=== PATIENT | female | born 1970 | race American Indian/Alaskan Native ===

== ENCOUNTER 2018-12-25 00:16 | Emergency (ER) | payer SELFPAY ==
[2018-12-25] MEDS ORDERED: ONDANSETRON 4 MG/2 ML INJ IV ONE (01:12)
[2018-12-25] MEDS ORDERED: SODIUM CHLORIDE 0.9% 1000 ML 1,000 ML IV ONE (01:12)
--- NOTE | 2018-12-25 01:21 | Emergency Department Report ---
HPI - General Chief Complaint: Nausea/Vomiting/Diarrhea Time Seen by Provider: 12/25/18 00:32 - HPI HPI: Room 19 The pt is a 48 y/o F p/w a cc of N/V. The pt states she's had nausea and vomiting. The pt denies Abd pain. Pt states she's been constipated x 4 days. Pt states she is passing flatus. Pt denies fever ED Past Medical Hx - Past Medical History Previous Medical History?: Yes Hx Hypertension: Yes Hx Diabetes: Yes Hx Arthritis: Yes (gout) Hx Psychiatric Treatment: Yes (bipolar, depression) Additional medical history: diverticulitis - Surgical History Past Surgical History?: No - Family History Family history: no significant - Social History Smoking Status: Former Smoker (none x 1 year) Substance Use Type: None - Medications Home Medications: Home Medications Medication Instructions Recorded Confirmed Last Taken Type Docusate Sodium [Colace] 100 mg PO BID PRN #30 capsule 12/25/18 Unknown Rx Gabapentin [Neurontin] 3 cap PO Q8HR 12/25/18 12/25/18 Unknown History Insulin Detemir [Levemir Flextouch] 34 unit SQ DAILY 12/25/18 12/25/18 Unknown History Lactulose [Cephulac] 20 gm PO Q6HR PRN #90 ml 12/25/18 Unknown Rx Lisinopril [Zestril TAB] 40 mg PO QDAY 12/25/18 12/25/18 Unknown History Metformin HCl [metFORMIN] 1,000 mg PO BID 12/25/18 12/25/18 Unknown History Metoclopramide [Reglan] 10 mg PO TID PRN #30 tab 12/25/18 Unknown Rx Nortriptyline [Pamelor] 3 cap PO HS 12/25/18 12/25/18 Unknown History SUMAtriptan SUCCINATE [Imitrex] 25 mg PO Q2HR PRN MDD 200 12/25/18 12/25/18 Unknown History Sitagliptin Phosphate [Januvia] 100 mg PO DAILY 12/25/18 12/25/18 Unknown History amLODIPine [Norvasc] 10 mg PO DAILY 12/25/18 12/25/18 Unknown History risperiDONE [RisperiDONE] 1 mg PO HS 12/25/18 12/25/18 Unknown History traZODone [Desyrel] 50 mg PO QHS 12/25/18 12/25/18 Unknown History ED Review of Systems ROS: Stated complaint: CONSTIPATION/NAUSEA Other details as noted in HPI Constitutional: denies: fever Eyes: denies: eye pain ENT: denies: throat pain Respiratory: no symptoms reported Cardiovascular: denies: chest pain Endocrine: no symptoms reported Gastrointestinal: nausea, vomiting, constipation. denies: abdominal pain Genitourinary: denies: dysuria Musculoskeletal: denies: back pain Neurological: denies: headache Physical Exam - Physical Exam Vital Signs: Vital Signs 12/25/18 00:30 Temperature 98.5 F Pulse Rate 108 H Respiratory 23 Rate Blood Pressure 184/133 Blood Pressure 184/133 [Left] O2 Sat by Pulse 100 Oximetry Physical Exam: GEN: WD WN F lying on stretcher with mild discomfort HEENT: EOMI NECK: Trachea midline LUNGS: No resp Distress CV: RRR no m/r/g ABD: S/ND. Pt has trace SP discomfort to palp o/w abd is benign SKIN: No Diaphoresis NEURO: GCS 15 MS: no evidence of acute injury ED Course Vital Signs 12/25/18 00:30 Temperature 98.5 F Pulse Rate 108 H Respiratory 23 Rate Blood Pressure 184/133 Blood Pressure 184/133 [Left] O2 Sat by Pulse 100 Oximetry - Reevaluation(s) Reevaluation #1: 12/25/18 04:38 pt had BM ED Medical Decision Making - Lab Data Result diagrams: 12/25/18 01:20 12/25/18 01:20 Laboratory Tests 12/25/18 12/25/18 12/25/18 00:44 01:20 01:20 WBC 10.7 RBC 5.12 H Hgb 15.4 H Hct 44.4 H MCV 87 MCH 30 MCHC 35 H RDW 13.1 L Plt Count 510 H Lymph % (Auto) 10.6 L [place] % (Auto) 4.3 Eos % (Auto) 0.2 Baso % (Auto) 0.4 Lymph # 1.1 L [place] # 0.5 Eos # 0.0 Baso # 0.0 Seg Neutrophils % 84.5 H Seg Neutrophils # 9.1 H Sodium 132 L Potassium 4.9 Chloride 93.8 L Carbon Dioxide 22 Anion Gap 21 BUN 12 Creatinine 0.7 Estimated GFR > 60 BUN/Creatinine Ratio 17 Glucose 293 H POC Glucose 270 H Calcium 9.6 Total Bilirubin 0.40 AST 19 ALT 17 Alkaline Phosphatase 129 Total Creatine Kinase CK-MB (CK-2) CK-MB (CK-2) Rel Index Troponin T Total Protein 9.3 H Albumin 4.5 Albumin/Globulin Ratio 0.9 Lipase 26 Urine Color Urine Turbidity Urine pH Ur Specific [place] Urine Protein Urine Glucose (UA) Urine Ketones Urine Blood Urine Nitrite Urine Bilirubin Urine Urobilinogen Ur Leukocyte Esterase Urine WBC (Auto) Urine RBC (Auto) U Epithel Cells (Auto) 12/25/18 12/25/18 01:20 01:44 WBC RBC Hgb Hct MCV MCH MCHC RDW Plt Count Lymph % (Auto) [place] % (Auto) Eos % (Auto) Baso % (Auto) Lymph # [place] # Eos # Baso # Seg Neutrophils % Seg Neutrophils # Sodium Potassium Chloride Carbon Dioxide Anion Gap BUN Creatinine Estimated GFR BUN/Creatinine Ratio Glucose POC Glucose Calcium Total Bilirubin AST ALT Alkaline Phosphatase Total Creatine Kinase 81 CK-MB (CK-2) 1.6 CK-MB (CK-2) Rel Index 1.9 Troponin T < 0.010 Total Protein Albumin Albumin/Globulin Ratio Lipase Urine Color Straw Urine Turbidity Clear Urine pH 8.0 H Ur Specific [place] 1.024 Urine Protein <15 mg/dl Urine Glucose (UA) >=500 Urine Ketones 80 Urine Blood Lg Urine Nitrite Neg Urine Bilirubin Neg Urine Urobilinogen < 2.0 Ur Leukocyte Esterase Neg Urine WBC (Auto) 6.0 Urine RBC (Auto) 19.0 U Epithel Cells (Auto) 4.0 - EKG Data -: EKG Interpreted by Sc EKG shows normal: sinus rhythm Rate: normal - EKG Data When compared to previous EKG there are: previous EKG unavailable Interpretation: other (no ischemic changes seen) - Radiology Data Radiology results: report reviewed (ct abd/pelvis), image reviewed (ct abd/pelvis) [facility] [address] [place] [address] Cat Scan Report Signed Patient: ABDIEL CUNHA MR#: [id number] : 1970 Acct:[id number] Age/Sex: 48 / F ADM Date: 12/25/18 Loc: ED Attending Dr: Ordering Physician: LUIS VEGAS MD Date of Service: 12/25/18 Procedure(s): CT abdomen pelvis w con Accession Number(s): [id number] cc: LUIS VEGAS MD CT ABDOMEN AND PELVIS WITH CONTRAST INDICATION / CLINICAL INFORMATION: n/v, unable to pass stool. TECHNIQUE: Axial CT images were obtained through the abdomen and pelvis after 100 mL Omnipaque [address] scans at this location are performed using CT dose reduction for ALARA by means of automated exposure control. COMPARISON: None available. FINDINGS: LOWER CHEST: No significant abnormality. LIVER: No significant abnormality. GALLBLADDER: No significant abnormality. BILE DUCTS: No significant abnormality. PANCREAS: No significant abnormality. SPLEEN: No significant abnormality. ADRENALS: No significant abnormality. RIGHT KIDNEY and URETER: No significant abnormality. LEFT KIDNEY and URETER: No significant abnormality. STOMACH and SMALL BOWEL: No significant abnormality. COLON: Moderate amount of fecal material throughout the colon and rectum. APPENDIX: No significant abnormality. PERITONEUM: No free fluid. No free air. No fluid collection. LYMPH NODES: No significant adenopathy. AORTA and A RTERIES: No significant abnormality. IVC and VEINS: No significant abnormality. URINARY BLADDER: No significant abnormality. REPRODUCTIVE ORGANS: No significant abnormality. ADDITIONAL FINDINGS: None. SKELETAL SYSTEM: No significant abnormality. IMPRESSION: 1. No inflammatory process or bowel obstruction. 2. Moderate amount of fecal material throughout the colon. Signer Name: Tiffany Arias MD Signed: 12/25/2018 3:07 AM Workstation Name: [id number] Transcribed By: DT Dictated By: Mj Arias MD Electronically Authenticated By: Mj Arias MD Signed Date/Time: 12/25/18306 DD/ 030 TD/TT: - Differential Diagnosis Constipation, SBO, ACS Critical care attestation.: If time is entered above; I have spent that time in minutes in the direct care of this critically ill patient, excluding procedure time. ED Disposition Clinical Impression: Constipation Disposition: DC-01 TO HOME OR SELFCARE Is pt being admited?: No Does the pt Need Aspirin: No Condition: Stable Instructions: Constipation (ED), High Fiber Diet (ED) Prescriptions: Lactulose [Cephulac] 20 gm PO Q6HR PRN #90 ml PRN Reason: Constipation Docusate Sodium [Colace] 100 mg PO BID PRN #30 capsule PRN Reason: Constipation Metoclopramide [Reglan] 10 mg PO TID PRN #30 tab PRN Reason: Nausea Referrals: LUCIANA SMYTH MD [Staff Physician] - 3-5 Days Time of Disposition: 04:41
[2018-12-25 01:35] LABS: Basophils % (Auto) 0.4 % (0.0-1.8); Eosinophils % (Auto) 0.2 % (0.0-4.3); Hematocrit 44.4 % (30.3-42.9); Hemoglobin 15.4 gm/dl (10.1-14.3); Lymphocytes # (Auto) 1.1 K/mm3 (1.2-5.4); Lymphocytes % (Auto) 10.6 % (13.4-35.0); Mean Corpuscular HGB Conc 35 % (30-34); Mean Corpuscular Volume 87 fl (79-97); Monocytes # (Auto) 0.5 K/mm3 (0.0-0.8); Monocytes % (Auto) 4.3 % (0.0-7.3); Platelet Count 510 K/mm3 (140-440); Red Blood Count 5.12 M/mm3 (3.65-5.03); Red Cell Distribution Width 13.1 % (13.2-15.2)
[2018-12-25 01:57] LABS: Bilirubin,Urine NEG (Negative); Blood,Urine LG (Negative); Color,Urine Straw (Yellow); Protein,Urine <15 mg/dL mg/dL (Negative); Urobilinogen,Urine < 2.0 mg/dL (<2.0)
[2018-12-25 02:02] LABS: Creatine Kinase MB 1.6 ng/mL (0.0-4.0)
[2018-12-25 02:04] LABS: Alanine Aminotransferase 17 units/L (7-56); Albumin 4.5 g/dL (3.9-5); BUN/Creatinine Ratio 17; Blood Urea Nitrogen 12 mg/dL (7-17); Calcium 9.6 mg/dL (8.4-10.2); Hemolysis Index 35
--- NOTE | 2018-12-25 03:11 | Cat Scan Report ---
CT ABDOMEN AND PELVIS WITH CONTRAST INDICATION / CLINICAL INFORMATION: n/v, unable to pass stool. TECHNIQUE: Axial CT images were obtained through the abdomen and pelvis after 100 mL Omnipaque [address] scans at this location are performed using CT dose reduction for ALARA by means of automated exposure control. COMPARISON: None available. FINDINGS: LOWER CHEST: No significant abnormality. LIVER: No significant abnormality. GALLBLADDER: No significant abnormality. BILE DUCTS: No significant abnormality. PANCREAS: No significant abnormality. SPLEEN: No significant abnormality. ADRENALS: No significant abnormality. RIGHT KIDNEY and URETER: No significant abnormality. LEFT KIDNEY and URETER: No significant abnormality. STOMACH and SMALL BOWEL: No significant abnormality. COLON: Moderate amount of fecal material throughout the colon and rectum. APPENDIX: No significant abnormality. PERITONEUM: No free fluid. No free air. No fluid collection. LYMPH NODES: No significant adenopathy. AORTA and ARTERIES: No significant abnormality. IVC and VEINS: No significant abnormality. URINARY BLADDER: No significant abnormality. REPRODUCTIVE ORGANS: No significant abnormality. ADDITIONAL FINDINGS: None. SKELETAL SYSTEM: No significant abnormality. IMPRESSION: 1. No inflammatory process or bowel obstruction. 2. Moderate amount of fecal material throughout the colon. Signer Name: Tiffany Arias MD Signed: 12/25/2018 3:07 AM Workstation Name: [id number]
[2018-12-25] MEDS ORDERED: LACTULOSE 20 GM/30 ML ORAL LIQD PO ONE (03:29)
[2018-12-25] MEDS ORDERED: METOCLOPRAMIDE 10 MG/2 ML INJ IV ONE (03:29)
[2018-12-25] MEDS ORDERED: cloNIDine 0.2 MG TAB PO ONE (03:30)
[2018-12-25] MEDS ORDERED: cloNIDine 0.2 MG TAB ONE (03:42)
[2018-12-25] MEDS ORDERED: PROMETHAZINE 25 MG TAB PO ONE (04:52)
[2018-12-25] MEDS ORDERED: ALUM-MAG HYDROXIDE-SIMETHICONE 200-200-20MG/5ML ORAL LIQD 30 ML PO ONE (04:53)
[2018-12-25 05:28] VITALS: BP 117/82
== END 2018-12-25 05:28 | disposition home or self-care (01) ==
LOC: ED 00:16
DX: K59.00 Constipation, unspecified (principal); R11.2 Nausea with vomiting, unspecified; I10 Essential (primary) hypertension; M10.9 Gout, unspecified; F31.9 Bipolar disorder, unspecified; F32.9 Major depressive disorder, single episode, unspecified; Z87.891 Personal history of nicotine dependence; Z79.899 Other long term (current) drug therapy
CPT/HCPCS: 36415; 74177; 80053; 81001; 82550; 82553; 82962; 83690; 84484; 85025; 93005; 93010; 96361; 96374; 96375; 99285; J2405; J2765; J7030; Q0169; Q9967

== ENCOUNTER 2018-12-26 16:08 | Inpatient (IN) | payer SELFPAY ==
[2018-12-26] MEDS ORDERED: ONDANSETRON 4 MG/2 ML INJ IV ONE ×2 (16:19→19:17)
[2018-12-26] MEDS ORDERED: SODIUM CHLORIDE 0.9% 1000 ML 1,000 ML IV ONE ×4 (16:19→22:25)
--- NOTE | 2018-12-26 16:22 | Event Note ---
ED Screening Note Date of service: 12/26/18 Time: 16:17 ED Screening Note: 48 y o male PMH of DM and HTN presents with dizziness, and thrst witth nausea vomitting diaphoretic, distress This initial assessment/diagnostic orders/clinical plan/treatment(s) is/are subject to change based on patients health status, clinical progression and re- assessment by fellow clinical providers in the ED. Further treatment and workup at subsequent clinical providers discretion. Patient/guardian urged not to elope from the ED as their condition may be serious if not clinically assessed and managed. Initial orders include: labs, meds ivf, insulin, clonidine ekg main side eval
--- NOTE | 2018-12-26 16:38 | Emergency Department Report ---
ED General Adult HPI - General Chief complaint: Hyperglycemia Stated complaint: HIGH BLOOD SUGAR Time Seen by Provider: 12/26/18 16:29 Source: EMS Mode of arrival: Wheelchair Limitations: No Limitations - History of Present Illness Initial comments: CRYSTAL is a 48-year-old female that presents emergency room with complaints of weakness, lightheadedness, nausea vomiting, elevated blood sugar. While the patient was in triage she had a syncopal episode. Patient was brought immediately to room 17. Patient denies chest pain shortness of breath. Patient states her syncope and loss of consciousness was for seconds. Patient is currently answering questions appropriately. Patient states she's had increased urination and increased thirst. Patient states her blood glucose is out of control. Patient denies chest pain shortness of breath. Patient denies fever and chills. Patient denies blurry vision. -: Sudden Consistency: constant Improves with: medication, rest Worsens with: movement Associated Symptoms: diaphoresis, malaise, nausea/vomiting, syncope, weakness. denies: confusion, chest pain, cough, fever/chills, headaches, loss of appetite, rash, seizure, shortness of breath Treatments Prior to Arrival: none - Related Data Home Medications Medication Instructions Recorded Confirmed Last Taken Gabapentin [Neurontin] 3 cap PO Q8HR 12/25/18 12/26/18 Unknown Insulin Detemir [Levemir Flextouch] 34 unit SQ DAILY 12/25/18 12/26/18 Unknown Lisinopril [Zestril TAB] 40 mg PO DAILY 12/25/18 12/26/18 Unknown Metformin HCl [metFORMIN] 1,000 mg PO BID 12/25/18 12/26/18 Unknown Nortriptyline [Pamelor] 3 cap PO HS 12/25/18 12/26/18 Unknown SUMAtriptan SUCCINATE [Imitrex] 25 mg PO Q2HR PRN MDD 200 12/25/18 12/26/18 Unknown Sitagliptin Phosphate [Januvia] 100 mg PO DAILY 12/25/18 12/26/18 Unknown amLODIPine [Norvasc] 10 mg PO DAILY 12/25/18 12/26/18 Unknown risperiDONE [RisperiDONE] 1 mg PO HS 12/25/18 12/26/18 Unknown traZODone [Desyrel] 50 mg PO QHS 12/25/18 12/26/18 Unknown Lispro Insulin [HumaLOG] 18 unit SQ BID 12/26/18 12/26/18 Unknown Previous Rx's Medication Instructions Recorded Last Taken Type Docusate Sodium [Colace] 100 mg PO BID PRN #30 capsule 12/25/18 Unknown Rx Lactulose [Cephulac] 20 gm PO Q6HR PRN #90 ml 12/25/18 Unknown Rx Metoclopramide [Reglan] 10 mg PO TID PRN #30 tab 12/25/18 Unknown Rx Allergies Allergy/AdvReac Type Severity Reaction Status Date / Time No Known Allergies Allergy Verified 12/25/18 04:03 ED Review of Systems ROS: Stated complaint: HIGH BLOOD SUGAR Other details as noted in HPI Constitutional: diaphoresis. denies: chills, fever Eyes: denies: eye pain, eye discharge, vision change ENT: denies: ear pain, throat pain Respiratory: denies: cough, shortness of breath, wheezing Cardiovascular: denies: chest pain, palpitations Endocrine: no symptoms reported, increased hunger, increased thirst, increased urine Gastrointestinal: nausea, vomiting. denies: abdominal pain, diarrhea Genitourinary: denies: urgency, dysuria, discharge Musculoskeletal: denies: back pain, joint swelling, arthralgia Skin: denies: rash, lesions Neurological: weakness. denies: headache, paresthesias Psychiatric: denies: anxiety, depression Hematological/Lymphatic: denies: easy bleeding, easy bruising ED Past Medical Hx - Past Medical History Previous Medical History?: Yes Hx Hypertension: Yes Hx Diabetes: Yes Hx Arthritis: Yes (gout) Hx Psychiatric Treatment: Yes (bipolar, depression) Additional medical history: diverticulitis - Surgical History Past Surgical History?: No - Family History Family history: no significant - Social History Smoking Status: Never Smoker Substance Use Type: None - Medications Home Medications: Home Medications Medication Instructions Recorded Confirmed Last Taken Type Docusate Sodium [Colace] 100 mg PO BID PRN #30 capsule 12/25/18 12/26/18 Unknown Rx Gabapentin [Neurontin] 3 cap PO Q8HR 12/25/18 12/26/18 Unknown History Insulin Detemir [Levemir Flextouch] 34 unit SQ DAILY 12/25/18 12/26/18 Unknown History Lactulose [Cephulac] 20 gm PO Q6HR PRN #90 ml 12/25/18 12/26/18 Unknown Rx Lisinopril [Zestril TAB] 40 mg PO DAILY 12/25/18 12/26/18 Unknown History Metformin HCl [metFORMIN] 1,000 mg PO BID 12/25/18 12/26/18 Unknown History Metoclopramide [Reglan] 10 mg PO TID PRN #30 tab 12/25/18 12/26/18 Unknown Rx Nortriptyline [Pamelor] 3 cap PO HS 12/25/18 12/26/18 Unknown History SUMAtriptan SUCCINATE [Imitrex] 25 mg PO Q2HR PRN MDD 200 12/25/18 12/26/18 Unknown History Sitagliptin Phosphate [Januvia] 100 mg PO DAILY 12/25/18 12/26/18 Unknown History amLODIPine [Norvasc] 10 mg PO DAILY 12/25/18 12/26/18 Unknown History risperiDONE [RisperiDONE] 1 mg PO HS 12/25/18 12/26/18 Unknown History traZODone [Desyrel] 50 mg PO QHS 12/25/18 12/26/18 Unknown History Lispro Insulin [HumaLOG] 18 unit SQ BID 12/26/18 12/26/18 Unknown History ED Physical Exam - General Limitations: No Limitations General appearance: alert, in no apparent distress - Head Head exam: Present: atraumatic, normocephalic - Eye Eye exam: Present: normal appearance, PERRL Pupils: Present: normal accommodation - ENT ENT exam: Present: mucous membranes moist - Neck Neck exam: Present: normal inspection - Respiratory Respiratory exam: Present: normal lung sounds bilaterally. Absent: respiratory distress, wheezes, rales - Cardiovascular Cardiovascular Exam: Present: regular rate, normal rhythm. Absent: systolic murmur, diastolic murmur, rubs, gallop - GI/Abdominal GI/Abdominal exam: Present: soft, normal bowel sounds - Extremities Exam Extremities exam: Present: normal inspection - Back Exam Back exam: Present: normal inspection - Neurological Exam Neurological exam: Present: alert, oriented X3 - Skin Skin exam: Present: warm, intact, normal color, diaphoretic. Absent: rash ED Course Vital Signs 12/26/18 12/26/18 12/26/18 16:17 16:31 16:46 Temperature 98.1 F Pulse Rate 110 H 111 H Respiratory 18 31 H 20 Rate Blood Pressure 220/130 195/129 O2 Sat by Pulse 100 94 Oximetry 12/26/18 12/26/18 12/26/18 17:00 17:30 17:45 Temperature Pulse Rate 108 H 103 H 113 H Respiratory 21 12 16 Rate Blood Pressure 204/127 195/123 183/108 O2 Sat by Pulse 100 87 Oximetry 12/26/18 12/26/18 12/26/18 17:53 17:59 18:00 Temperature 97.8 F Pulse Rate 118 H Respiratory 18 21 Rate Blood Pressure 193/117 O2 Sat by Pulse 97 92 Oximetry 12/26/18 12/26/18 12/26/18 18:15 18:45 19:00 Temperature Pulse Rate 119 H 122 H 118 H Respiratory 22 14 19 Rate Blood Pressure 177/123 188/117 199/127 O2 Sat by Pulse 99 98 96 Oximetry 12/26/18 12/26/18 12/26/18 19:30 20:00 20:30 Temperature Pulse Rate 118 H 126 H Respiratory 20 20 12 Rate Blood Pressure 193/120 167/118 O2 Sat by Pulse 98 Oximetry 12/26/18 12/26/18 12/26/18 21:00 21:30 22:00 Temperature Pulse Rate Respiratory 13 18 10 L Rate Blood Pressure 160/88 152/89 161/89 O2 Sat by Pulse 98 97 Oximetry 12/26/18 22:30 Temperature Pulse Rate 129 H Respiratory 25 H Rate Blood Pressure 139/97 O2 Sat by Pulse Oximetry - Reevaluation(s) Reevaluation #1: Initial evaluation done. Patient answering questions. Patient is lethargic but easily arousable. 12/26/18 16:29 Reevaluation #2: Patient ambulatory in the ER to use the bathroom. 12/26/18 17:53 Reevaluation #3: His blood pressure still high. Patient's blood pressure does not come down at all with hydralazine. Patient placed on a nicardipine drip. Patient denies pain. Patient is more alert and is answering all questions appropriate. 12/26/18 19:18 Reevaluation #4: pt on nicardipine drip. Patient is complaining of nausea. Patient's head CT negative. I discussed all results with patient. I discussed plan of care with patient. Patient will be admitted to the hospitalist service. Patient agrees plan of care. 12/26/18 20:27 The patient's anion gap is not closing and the patient's bicarbonate is worsened. Patient placed on insulin drip. 12/26/18 22:38 - Consultations Consultation #1: Hospitalist consult for admission. Hospitalist to admit patient. 12/26/18 20:28 ED Medical Decision Making - Lab Data Result diagrams: 12/26/18 16:32 12/26/18 21:43 - EKG Data -: EKG Interpreted by Me EKG shows normal: sinus rhythm, axis, intervals, QRS complexes, ST-T waves Rate: tachycardia - Radiology Data Radiology results: report reviewed, image reviewed interpreted by me: No acute findings on chest x-ray. CT HEAD WITHOUT CONTRAST INDICATION / CLINICAL INFORMATION: syncope. TECHNIQUE: All CT scans at this location are performed using CT dose reduction for ALARA by means of automated exposure control. COMPARISON: None available. FINDINGS: HEMORRHAGE: No evidence of intracranial hemorrhage or extra-axial fluid collecti on. EXTRA-AXIAL SPACES: Cortical sulci, sylvian fissures and basilar cisterns have an unremarkable appearance. VENTRICULAR SYSTEM: The ventricular system is of normal size and configuration. CEREBRAL PARENCHYMA: No areas of abnormal brain parenchymal attenuation are identified. There is no indication of recent infarction. MIDLINE SHIFT OR HERNIATION: There is no mass effect. CEREBELLUM / BRAINSTEM: Brainstem and cerebellum have an unremarkable appearance. INTRACRANIAL VESSELS:No abnormalities are identified on this noncontrast head CT. ORBITS: visualized portions of the orbits have an unremarkable appearance. SOFT TISSUES of HEAD: No significant abnormality. CALVARIUM: Evaluation of bone windows reveals no abnormalities. PARANASAL SINUSES / MASTOID AIR CELLS: Paranasal sinuses are free from inflammatory mucosal disease. Mastoid air cells are normally pneumatized. IMPRESSION: 1. No abnormalities are identified on head CT without contrast. - Medical Decision Making Patient is a 48-year-old female that presents emergency room with complaints of nausea and vomiting for multiple days, elevated blood sugar and polyuria. Patient has known history of diabetes. Patient found to be in DKA. Patient's pH was alkalotic and I believe that the pH alkalosis because of multiple bouts of nausea and vomiting on top of diabetic ketoacidosis.. Patient given Zofran and fluids. Patient placed on a insulin drip. Patient had a DKA protocol. Patient had a syncopal episode in triage. Patient was immediately brought back from triage. pt had ct for her syncopal episode and was negative. cxr negative. Patient also found to be malignant hypertension and hypertensive emergency and was given IV meds of her blood pressure did not improve, and patient was then placed on a nicardipine drip. Patient also found to have hypokalemia and was given potassium runs. After 2 bags potassium her potassium was canceled due to needing to be placed on D5 half-normal saline with 20 of K. - Differential Diagnosis DKA. Intractable nausea and vomiting. syncope. hyperglycemia Critical Care Time: Yes Critical care attestation.: If time is entered above; I have spent that time in minutes in the direct care of this critically ill patient, excluding procedure time. Critical Care Time: 55 minutes ED Disposition Clinical Impression: Polyuria, Weakness, Lightheadedness, Hypertensive emergency, Hyponatremia, Lactic acid acidosis, Hypokalemia DKA (diabetic ketoacidoses) Qualifiers: Diabetes mellitus type: type 1 Diabetes mellitus complication detail: with coma Qualified Code(s): E10.11 - Type 1 diabetes mellitus with ketoacidosis with coma Nausea & vomiting Qualifiers: Vomiting type: unspecified Vomiting Intractability: intractable Qualified Code(s): R11.2 - Nausea with vomiting, unspecified Syncope Qualifiers: Syncope type: unspecified Qualified Code(s): R55 - Syncope and collapse Disposition: OP ADMIT IP TO THIS HOSP Is pt being admited?: Yes Does the pt Need Aspirin: No Condition: Critical Time of Disposition: 18:00
[2018-12-26 16:48] LABS: Basophils # (Auto) 0.1 K/mm3 (0.0-0.1); Basophils % (Auto) 0.6 % (0.0-1.8); Eosinophils # (Auto) 0.1 K/mm3 (0.0-0.4); Eosinophils % (Auto) 0.8 % (0.0-4.3); Hematocrit 42.8 % (30.3-42.9); Hemoglobin 14.5 gm/dl (10.1-14.3); Lymphocytes # (Auto) 1.1 K/mm3 (1.2-5.4); Lymphocytes % (Auto) 12.8 % (13.4-35.0); Mean Corpuscular HGB Conc 34 % (30-34); Mean Corpuscular Volume 87 fl (79-97); Monocytes # (Auto) 0.5 K/mm3 (0.0-0.8); Monocytes % (Auto) 6.1 % (0.0-7.3); Platelet Count 567 K/mm3 (140-440); Red Blood Count 4.91 M/mm3 (3.65-5.03); Red Cell Distribution Width 13.3 % (13.2-15.2)
[2018-12-26] MEDS ORDERED: hydrALAZINE 20 MG/1 ML INJ IV ONE (16:54)
[2018-12-26 16:58] LABS: INR 0.98 (0.87-1.13)
[2018-12-26 17:02] LABS: Alanine Aminotransferase 16 units/L (7-56); Albumin 4.3 g/dL (3.9-5); BUN/Creatinine Ratio 26; Blood Urea Nitrogen 23 mg/dL (7-17); Calcium 9.5 mg/dL (8.4-10.2); Hemolysis Index 28
--- NOTE | 2018-12-26 17:18 | XRay Report ---
CHEST 1 VIEW INDICATION / CLINICAL INFORMATION: Lightheadedness/Dizziness. COMPARISON: None available. FINDINGS: SUPPORT DEVICES: None. HEART / MEDIASTINUM: No significant abnormality. LUNGS / PLEURA: No significant pulmonary or pleural abnormality. No pneumothorax. ADDITIONAL FINDINGS: No significant additional findings. IMPRESSION: 1. No acute findings. Signer Name: Robbi Salazar MD Signed: 12/26/2018 5:13 PM Workstation Name: [id number]
[2018-12-26] MEDS ORDERED: DEXTROSE 50% IN WATER (25GM) 50 ML SYRINGE IV PRN (17:48)
[2018-12-26 17:50] LABS: Bilirubin,Urine NEG (Negative); Blood,Urine NEG (Negative); Color,Urine Straw (Yellow); Mucus,Urine FEW /HPF; Protein,Urine <15 mg/dL mg/dL (Negative); Urobilinogen,Urine < 2.0 mg/dL (<2.0)
[2018-12-26] MEDS ORDERED: INSULIN REGULAR, HUMAN 100 UNITS/1 ML IV ONE (17:59)
[2018-12-26] MEDS ORDERED: D5W/0.45% NACL/KCL 20 MEQ 20 MEQ/1,000 ML BAG IV SCH ×2 (18:00→23:00)
[2018-12-26] MEDS ORDERED: INSULIN REGULAR, HUMAN 100 UNITS in SODIUM CHLORIDE 0.9% 99 ML IV SCH ×2 (18:00→23:00)
[2018-12-26] MEDS ORDERED: PROMETHAZINE 25 MG RECT SUPP PR ONE ×2 (18:17→21:21)
[2018-12-26 18:36] LABS: BUN/Creatinine Ratio 23; Blood Urea Nitrogen 21 mg/dL (7-17); Calcium 8.7 mg/dL (8.4-10.2); Hemolysis Index 8
[2018-12-26 18:50] LABS: Amphetamine Screen,Urine PRESUMPTIVE NEGATIVE; Benzodiazepines Screen,Urine PRESUMPTIVE NEGATIVE; Cannabinoid Screen,Urine PRESUMPTIVE NEGATIVE; Cocaine Screen,Urine PRESUMPTIVE NEGATIVE; Methadone Screen,Urine PRESUMPTIVE NEGATIVE; Opiate Screen,Urine PRESUMPTIVE NEGATIVE
[2018-12-26 19:43] LABS: BUN/Creatinine Ratio 23; Blood Urea Nitrogen 18 mg/dL (7-17); Calcium 8.4 mg/dL (8.4-10.2); Hemolysis Index 61
[2018-12-26] MEDS ORDERED: niCARdipine 50 MG in SODIUM CHLORIDE 0.9% 250ML 230 ML IV SCH (20:00)
--- NOTE | 2018-12-26 20:17 | Cat Scan Report ---
CT HEAD WITHOUT CONTRAST INDICATION / CLINICAL INFORMATION: syncope. TECHNIQUE: All CT scans at this location are performed using CT dose reduction for ALARA by means of automated e xposure control. COMPARISON: None available. FINDINGS: HEMORRHAGE: No evidence of intracranial hemorrhage or extra-axial fluid collection. EXTRA-AXIAL SPACES: Cortical sulci, sylvian fissures and basilar cisterns have an unremarkable appear ance. VENTRICULAR SYSTEM: The ventricular system is of normal size and configuration. CEREBRAL PARENCHYMA: No areas of abnormal brain parenchymal attenuation are identified. There is no i ndication of recent infarction. MIDLINE SHIFT OR HERNIATION: There is no mass effect. CEREBELLUM / BRAINSTEM: Brainstem and cerebellum have an unremarkable appearance. INTRACRANIAL VESSELS:No abnormalities are identified on this noncontrast head CT. ORBITS: visualized portions of the orbits have an unremarkable appearance. SOFT TISSUES of HEAD: No significant abnormality. CALVARIUM: Evaluation of bone windows reveals no abnormalities. PARANASAL SINUSES / MASTOID AIR CELLS: Paranasal sinuses are free from inflammatory mucosal disease. Mastoid air cells are normally pneumatized. IMPRESSION: 1. No abnormalities are identified on head CT without contrast. Signer Name: Abdi Gibbons MD Signed: 12/26/2018 8:12 PM Workstation Name: [id number]
[2018-12-26] MEDS ORDERED: SODIUM CHLORIDE 0.9% 500 ML 500 ML ONE (21:05)
[2018-12-26] MEDS: POTASSIUM CHLORIDE 10 MEQ 10 MEQ/100 ML BAG IV SCH ×2 (21:19→22:40)
[2018-12-26] MEDS ORDERED: LORazepam 2 MG/ML VIAL IV ONE (21:38)
[2018-12-26 22:18] LABS: BUN/Creatinine Ratio 21; Blood Urea Nitrogen 17 mg/dL (7-17); Calcium 8.5 mg/dL (8.4-10.2); Hemolysis Index 9
--- NOTE | 2018-12-27 | History and Physical Report ---
History of Present Illness Date of examination: 12/26/18 History of present illness: 48-year-old woman with a history of hypertension, diabetes, gout, bipolar, depression comes emergency room complaining of nausea vomiting since Monday, feeling dizzy. She was seen in the emergency room yesterday for abdominal pain, CT abdomen was negative she was discharged to home she describes her pain as sharp, intermittent every few minutes, intensity 6/10, no radiation, cannot identify exacerbating or relieving factors. Blood pressure control, started on a Cardene drip eview Of Systems: Constitutional: no weight loss, fever, chills Ears, eyes, nose, mouth and throat: no nasal congestion, no nasal discharge, no sinus pressure, blurry vision, diplopia Neck: No neck pain or rigidity. Cardiovascular: No palpitations, chest pain Respiratory: No shortness of breath, cough Gastrointestinal: No hematochezia Genitourinary : no dysuria, frequency , hematuria Musculoskeletal: no muscle ache , joint pain Integumentary: no rash, no pruritis Neurological: no parathesias, focal weakness Endocrine: no cold or heat intolerance, no polyuria or polydipsia Hematologic/Lymphatic: no easy bruising, no easy bleeding, no gland swelling Allergic/Immunologic: no urticaria, no angioedema. PAST MEDICAL HISTORY: hypertension, diabetes, gout, bipolar, depression PAST SURGICAL HISTORY: None FAMILY HISTORY:hypertension, diabetes SOCIAL HISTORY: Denies tobacco, drugs, alcohol Medications and Allergies Allergies Allergy/AdvReac Type Severity Reaction Status Date / Time No Known Allergies Allergy Verified 12/25/18 04:03 Home Medications Medication Instructions Recorded Confirmed Last Taken Type Docusate Sodium [Colace] 100 mg PO BID PRN #30 capsule 12/25/18 12/26/18 Unknown Rx Gabapentin [Neurontin] 3 cap PO Q8HR 12/25/18 12/26/18 Unknown History Insulin Detemir [Levemir Flextouch] 34 unit SQ DAILY 12/25/18 12/26/18 Unknown History Lactulose [Cephulac] 20 gm PO Q6HR PRN #90 ml 12/25/18 12/26/18 Unknown Rx Lisinopril [Zestril TAB] 40 mg PO DAILY 12/25/18 12/26/18 Unknown History Metformin HCl [metFORMIN] 1,000 mg PO BID 12/25/18 12/26/18 Unknown History Metoclopramide [Reglan] 10 mg PO TID PRN #30 tab 12/25/18 12/26/18 Unknown Rx Nortriptyline [Pamelor] 3 cap PO HS 12/25/18 12/26/18 Unknown History SUMAtriptan SUCCINATE [Imitrex] 25 mg PO Q2HR PRN MDD 200 12/25/18 12/26/18 Unknown History Sitagliptin Phosphate [Januvia] 100 mg PO DAILY 12/25/18 12/26/18 Unknown Hist ory amLODIPine [Norvasc] 10 mg PO DAILY 12/25/18 12/26/18 Unknown History risperiDONE [RisperiDONE] 1 mg PO HS 12/25/18 12/26/18 Unknown History traZODone [Desyrel] 50 mg PO QHS 12/25/18 12/26/18 Unknown History Lispro Insulin [HumaLOG] 18 unit SQ BID 12/26/18 12/26/18 Unknown History Active Meds: Active Medications Dextrose (D50w (25gm) Syringe) 0 ml IV PRN PRN PRN Reason: Hypoglycemia Nicardipine HCl 50 mg/ Sodium (Chloride) 250 mls @ 25 mls/hr IV TITR JOSE C; Protocol Last Titration: 12/26/18 20:50 Dose: 7.5 mg/hr, 37.5 mls/hr Documented by: Insulin Human Regular 100 (units/ Sodium Chloride) 100 mls @ 1 mls/hr IV TITR JOSE C; Protocol Last Admin: 12/26/18 23:30 Dose: 5 units/hr, 5 mls/hr Documented by: Potassium Chloride/Dextrose/Sod Cl (D5w/0.45% Nacl/Kcl 20 Meq) 20 meq in 1,000 mls @ 125 mls/hr IV DIRECT JOSE C Last Admin: 12/26/18 23:34 Dose: 125 mls/hr Documented by: Exam - Physical Exam Narrative exam: General Apperance: The patient sitting in bed no acute distress HEENT: Normocephalic, atraumatic. Pupils equally round and reactive to light, extraocular movement intact, and no sclericterus or JVD or thyromegaly or nodule. Neck supple, no carotid bruit, mucous membranes moist, no exudate or erythema Heart: S1-S2, regular is rhythm Lungs: Clear to auscultation bilaterally, breathing comfortable Abdomen: Positive bowel sounds, soft, tender in the lower abdomen, nondistended, no organomegaly Extremities: No edema cyanosis clubbing Skin: no rash, nodule, warm and dry Neuro:CN 2 -12 intact, motor/sensory intact, speech is fluent - Constitutional Vitals: Temp Pulse Resp BP Pulse Ox 97.8 F 129 H 25 H 139/97 97 12/26/18 17:53 12/26/18 22:30 12/26/18 22:30 12/26/18 22:30 12/26/18 21:30 Results - Labs CBC & Chem 7: 12/26/18 16:32 12/27/18 02:42 Labs: Abnormal lab results 12/26/18 12/26/18 12/26/18 Range/Units 16:28 16:32 16:32 Hgb 14.5 H (10.1-14.3) gm/dl Plt Count 567 H (140-440) K/mm3 Lymph % (Auto) 12.8 L (13.4-35.0) % Lymph # 1.1 L (1.2-5.4) K/mm3 Seg Neutrophils % 79.7 H (40.0-70.0) % VBG pH (7.320-7.420) Sodium 130 L (137-145) mmol/L Potassium (3.6-5.0) mmol/L Chloride 89.5 L (98-107) mmol/L Carbon Dioxide 20 L (22-30) mmol/L BUN 23 H (7-17) mg/dL Glucose 346 H (65-100) mg/dL POC Glucose 339 H (70-105) Lactic Acid (0.7-2.0) mmol/L Phosphorus (2.5-4.5) mg/dL Total Protein 8.9 H (6.3-8.2) g/dL Urine pH (5.0-7.0) 12/26/18 12/26/18 12/26/18 Range/Units 16:32 16:32 17:18 Hgb (10.1-14.3) gm/dl Plt Count (140-440) K/mm3 Lymph % (Auto) (13.4-35.0) % Lymph # (1.2-5.4) K/mm3 Seg Neutrophils % (40.0-70.0) % VBG pH 7.498 H (7.320-7.420) Sodium (137-145) mmol/L Potassium (3.6-5.0) mmol/L Chloride (98-107) mmol/L Carbon Dioxide (22-30) mmol/L BUN (7-17) mg/dL Glucose (65-100) mg/dL POC Glucose (70-105) Lactic Acid 2.50 H* 2.10 H* (0.7-2.0) mmol/L Phosphorus (2.5-4.5) mg/dL Total Protein (6.3-8.2) g/dL Urine pH (5.0-7.0) 12/26/18 12/26/18 12/26/18 Range/Units 17:54 17:54 18:52 Hgb (10.1-14.3) gm/dl Plt Count (140-440) K/mm3 Lymph % (Auto) (13.4-35.0) % Lymph # (1.2-5.4) K/mm3 Seg Neutrophils % (40.0-70.0) % VBG pH (7.320-7.420) Sodium 135 L (137-145) mmol/L Potassium (3.6-5.0) mmol/L Chloride 96.3 L (98-107) mmol/L Carbon Dioxide 21 L (22-30) mmol/L BUN 21 H (7-17) mg/dL Glucose 297 H (65-100) mg/dL POC Glucose 255 H (70-105) Lactic Acid (0.7-2.0) mmol/L Phosphorus 1.20 L (2.5-4.5) mg/dL Total Protein (6.3-8.2) g/dL Urine pH (5.0-7.0) 12/26/18 12/26/18 12/26/18 Range/Units 19:15 21:10 21:43 Hgb (10.1-14.3) gm/dl Plt Count (140-440) K/mm3 Lymph % (Auto) (13.4-35.0) % Lymph # (1.2-5.4) K/mm3 Seg Neutrophils % (40.0-70.0) % VBG pH (7.320-7.420) Sodium 134 L 132 L (137-145) mmol/L Potassium 3.5 L 3.5 L (3.6-5.0) mmol/L Chloride 97.7 L 94.7 L (98-107) mmol/L Carbon Dioxide 19 L 17 L (22-30) mmol/L BUN 18 H (7-17) mg/dL Glucose 216 H 249 H (65-100) mg/dL POC Glucose 237 H (70-105) Lactic Acid (0.7-2.0) mmol/L Phosphorus (2.5-4.5) mg/dL Total Protein (6.3-8.2) g/dL Urine pH (5.0-7.0) 12/26/18 12/26/18 Range/Units 22:46 Unknown Hgb (10.1-14.3) gm/dl Plt Count (140-440) K/mm3 Lymph % (Auto) (13.4-35.0) % Lymph # (1.2-5.4) K/mm3 Seg Neutrophils % (40.0-70.0) % VBG pH (7.320-7.420) Sodium (137-145) mmol/L Potassium (3.6-5.0) mmol/L Chloride (98-107) mmol/L Carbon Dioxide (22-30) mmol/L BUN (7-17) mg/dL Glucose (65-100) mg/dL POC Glucose 250 H (70-105) Lactic Acid (0.7-2.0) mmol/L Phosphorus (2.5-4.5) mg/dL Total Protein (6.3-8.2) g/dL Urine pH 8.0 H (5.0-7.0) - Imaging and Cardiology EKG: image reviewed Chest x-ray: report reviewed CT scan - abdomen: report reviewed CT scan - pelvis: report reviewed Assessment and Plan assessment DKA Hypertension malignant Abdominal pain Gout Plan Admit to medicine Start IV fluids, insulin drip Check serial chemistry CT abdomen and pelvis reviewed from yesterday, refuses for his CT Consult critical care Continue Cardene drip DVT prophylaxis
[2018-12-27 01:03] LABS: BUN/Creatinine Ratio 23; Blood Urea Nitrogen 16 mg/dL (7-17); Calcium 8.3 mg/dL (8.4-10.2); Hemolysis Index 10
[2018-12-27] MEDS: POTASSIUM CHLORIDE 10 MEQ 10 MEQ/100 ML BAG IV SCH (02:33)
[2018-12-27 03:00] LABS: BUN/Creatinine Ratio 21; Blood Urea Nitrogen 15 mg/dL (7-17); Calcium 7.9 mg/dL (8.4-10.2); Hemolysis Index 20
[2018-12-27] MEDS ORDERED: ONDANSETRON 4 MG/2 ML INJ IV PRN (05:16)
[2018-12-27] MEDS ORDERED: ACETAMINOPHEN 325 MG TAB PO PRN (05:16)
[2018-12-27] MEDS ORDERED: DEXTROSE 50% IN WATER (25GM) 50 ML SYRINGE IV PRN ×2 (05:30→08:17)
[2018-12-27] MEDS ORDERED: INSULIN REGULAR, HUMAN 100 UNITS in SODIUM CHLORIDE 0.9% 99 ML IV SCH (06:00)
[2018-12-27] MEDS ORDERED: SODIUM CHLORIDE 0.9% 1000 ML 1,000 ML IV SCH (06:00)
[2018-12-27 06:38] LABS: BUN/Creatinine Ratio 20; Blood Urea Nitrogen 14 mg/dL (7-17); Calcium 7.9 mg/dL (8.4-10.2); Hemolysis Index 17
[2018-12-27] MEDS ORDERED: LACTULOSE 20 GM/30 ML ORAL LIQD PO PRN (08:14)
[2018-12-27] MEDS ORDERED: METOCLOPRAMIDE 10 MG TAB PO PRN (08:14)
[2018-12-27] MEDS ORDERED: DOCUSATE SODIUM 100 MG CAP PO PRN (08:14)
[2018-12-27] MEDS ORDERED: SUMAtriptan SUCCINATE 25 MG TAB PO PRN (08:14)
[2018-12-27 08:16] LABS: BUN/Creatinine Ratio 19; Blood Urea Nitrogen 13 mg/dL (7-17); Calcium 8.5 mg/dL (8.4-10.2); Hemolysis Index 104
--- NOTE | 2018-12-27 08:37 | Progress Note ---
Assessment and Plan Assessment and plan: 48-year-old woman with history of diabetes who presented with thirst and lethargy. She had lost her medical insurance and no longer had access to insulin Diagnosis DKA Dehydration Nonadherence due to loss of insurance Plan Patient was treated with insulin drip, IV fluids Transition to subcutaneous insulins Preventative health counseling performed for 17 minutes History Interval history: Review of systems Constitutional: No fevers, no malaise, no joint pains CVS: No chest pain, no orthopnea, no dyspnea on exertion, no pedal edema GI: No abdominal pain, no diarrhea, no vomiting, no constipation Respiratory: no wheezing, no coughing Hospitalist Physical - Physical exam Narrative exam: General.: Appears well, no distress, nontoxic HEENT: Moist mucous membranes, extraocular muscles intact, no lymphadenopathy Neck: supple Cardiac: S1-S2 heard Lungs: clear to auscultation bilaterally Abdomen: soft , nontender, nondistended, bowel sounds positive Extremities: no edema clubbing or cyanosis Skin: no rash or lesions Neurologic: no gross focal deficits Psych: calm, and cooperative - Constitutional Vitals: Temp Pulse Resp BP Pulse Ox 97.8 F 109 H 16 143/99 100 12/26/18 17:53 12/27/18 07:35 12/27/18 07:35 12/27/18 07:35 12/27/18 07:35 Results - Labs CBC & Chem 7: 12/26/18 16:32 12/27/18 07:40 Labs: Laboratory Last Values WBC 8.7 K/mm3 (4.5-11.0) 12/26/18 16:32 RBC 4.91 M/mm3 (3.65-5.03) 12/26/18 16:32 Hgb 14.5 gm/dl (10.1-14.3) H 12/26/18 16:32 Hct 42.8 % (30.3-42.9) 12/26/18 16:32 MCV 87 fl (79-97) 12/26/18 16:32 MCH 30 pg (28-32) 12/26/18 16:32 MCHC 34 % (30-34) 12/26/18 16:32 RDW 13.3 % (13.2-15.2) 12/26/18 16:32 Plt Count 567 K/mm3 (140-440) H 12/26/18 16:32 Lymph % (Auto) 12.8 % (13.4-35.0) L 12/26/18 16:32 [place] % (Auto) 6.1 % (0.0-7.3) 12/26/18 16:32 Eos % (Auto) 0.8 % (0.0-4.3) 12/26/18 16:32 Baso % (Auto) 0.6 % (0.0-1.8) 12/26/18 16:32 Lymph # 1.1 K/mm3 (1.2-5.4) L 12/26/18 16:32 [place] # 0.5 K/mm3 (0.0-0.8) 12/26/18 16:32 Eos # 0.1 K/mm3 (0.0-0.4) 12/26/18 16:32 Baso # 0.1 K/mm3 (0.0-0.1) 12/26/18 16:32 Seg Neutrophils % 79.7 % (40.0-70.0) H 12/26/18 16:32 Seg Neutrophils # 6.9 K/mm3 (1.8-7.7) 12/26/18 16:32 PT 12.7 Sec. (12.2-14.9) 12/26/18 16:32 INR 0.98 (0.87-1.13) 12/26/18 16:32 VBG pH 7.498 (7.320-7.420) H 12/26/18 16:32 Sodium 134 mmol/L (137-145) L 12/27/18 07:40 Potassium 3.8 mmol/L (3.6-5.0) 12/27/18 05:55 Chloride 99.7 mmol/L (98-107) 12/27/18 07:40 Carbon Dioxide 16 mmol/L (22-30) L 12/27/18 07:40 Anion Gap 17 mmol/L 12/27/18 05:55 BUN 13 mg/dL (7-17) 12/27/18 07:40 Creatinine 0.7 mg/dL (0.7-1.2) 12/27/18 07:40 Estimated GFR > 60 ml/min 12/27/18 07:40 BUN/Creatinine Ratio 19 % 12/27/18 07:40 Glucose 143 mg/dL (65-100) H 12/27/18 07:40 POC Glucose 139 (70-105) H 12/27/18 07:28 Lactic Acid 1.70 mmol/L (0.7-2.0) 12/26/18 19:15 Calcium 8.5 mg/dL (8.4-10.2) 12/27/18 07:40 Phosphorus 2.40 mg/dL (2.5-4.5) L D 12/27/18 05:55 Magnesium 2.10 mg/dL (1.7-2.3) 12/27/18 05:55 Total Bilirubin 0.60 mg/dL (0.1-1.2) 12/26/18 16:32 AST 19 units/L (5-40) 12/26/18 16:32 ALT 16 units/L (7-56) 12/26/18 16:32 Alkaline Phosphatase 125 units/L (35-129) 12/26/18 16:32 Total Creatine Kinase 133 units/L (30-135) 12/26/18 16:32 CK-MB (CK-2) 2.0 ng/mL (0.0-4.0) 12/26/18 16:32 CK-MB (CK-2) Rel Index 1.5 (0-4) 12/26/18 16:32 Troponin T < 0.010 ng/mL (0.00-0.029) 12/26/18 16:32 Total Protein 8.9 g/dL (6.3-8.2) H 12/26/18 16:32 Albumin 4.3 g/dL (3.9-5) 12/26/18 16:32 Albumin/Globulin Ratio 0.9 % 12/26/18 16:32 Urine Color Straw (Yellow) 12/26/18 Unknown Urine Turbidity Clear (Clear) 12/26/18 Unknown Urine pH 8.0 (5.0-7.0) H 12/26/18 Unknown Ur Specific Rule 1.022 (1.003-1.030) 12/26/18 Unknown Urine Protein <15 mg/dl mg/dL (Negative) 12/26/18 Unknown Urine Glucose (UA) >=500 mg/dL (Negative) 12/26/18 Unknown Urine Ketones 80 mg/dL (Negative) 12/26/18 Unknown Urine Blood Neg (Negative) 12/26/18 Unknown Urine Nitrite Neg (Negative) 12/26/18 Unknown Urine Bilirubin Neg (Negative) 12/26/18 Unknown Urine Urobilinogen < 2.0 mg/dL (<2.0) 12/26/18 Unknown Ur Leukocyte Esterase Neg (Negative) 12/26/18 Unknown Urine WBC (Auto) 2.0 /HPF (0.0-6.0) 12/26/18 Unknown Urine RBC (Auto) 3.0 /HPF (0.0-6.0) 12/26/18 Unknown U Epithel Cells (Auto) 1.0 /HPF (0-13.0) 12/26/18 Unknown Urine Mucus Few /HPF 12/26/18 Unknown Urine Opiates Screen Presumptive negative 12/26/18 Unknown Urine Methadone Screen Presumptive negative 12/26/18 Unknown Ur Barbiturates Screen Presumptive negative 12/26/18 Unknown Ur Phencyclidine Scrn Presumptive negative 12/26/18 Unknown Ur Amphetamines Screen Presumptive negative 12/26/18 Unknown U Benzodiazepines Scrn Presumptive negative 12/26/18 Unknown Urine Cocaine Screen Presumptive negative 12/26/18 Unknown U Marijuana (THC) Screen Presumptive negative 12/26/18 Unknown Drugs of Abuse Note Disclamer 12/26/18 Unknown Active Medications - Current Medications Current Medications: Generic Name Dose Route Start Last Admin Trade Name Freq PRN Reason Stop Dose Admin Acetaminophen 650 mg 12/27/18 05:16 Tylenol PO Q4H PRN Pain MILD(1-3)/Fever >100.5/GONZALEZ Amlodipine Besylate 10 mg 12/27/18 10:00 Norvasc PO DAILY JOSE C Dextrose 0 ml 12/27/18 05:30 D50w (25gm) Syringe IV ONCE PRN Hypoglycemia Dextrose 50 ml 12/27/18 08:17 D50w (25gm) Syringe IV PRN PRN Hypoglycemia Docusate Sodium 100 mg 12/27/18 08:14 Colace PO BID PRN Constipation Enoxaparin Sodium 40 mg 12/27/18 10:00 Lovenox SUB-Q QDAY@1000 JOSE C Gabapentin mg 12/27/18 14:00 Neurontin PO Q8HR JOSE C Nicardipine HCl 50 mg/ Sodium 250 mls @ 25 mls/hr 12/26/18 20:00 12/27/18 03:04 Chloride IV 2.5 mg/hr TITR JOSE C 12.5 mls/hr Titration Protocol 5 MG/HR Potassium Chloride/Dextrose/Sod Cl 20 meq in 1,000 mls @ 125 mls/hr 12/26/18 23:00 12/26/18 23:34 D5w/0.45% Nacl/Kcl 20 Meq IV 125 mls/hr DIRECT JOSE C Administration Sodium Chloride 1,000 mls @ 150 mls/hr 12/27/18 06:00 Nacl 0.9% 1000 Ml IV DIRECT JOSE C Insulin Human Regular 100 100 mls @ 1 mls/hr 12/27/18 06:00 units/ Sodium Chloride IV TITR JSOE C Protocol 1 UNITS/HR Sodium Phosphate 45 mmol/ 515 mls @ 84 mls/hr 12/27/18 08:13 Sodium Chloride IV 12/27/18 14:20 ONCE ONE Insulin Human Lispro 18 unit 12/27/18 11:30 Humalog SUB-Q AC JOSE C Insulin Human Lispro 0 unit 12/27/18 11:30 Humalog SUB-Q ACHS REPLACED BY [facility] Protocol Lactulose 20 gm 12/27/18 08:14 Cephulac PO Q6HR PRN Constipation Lisinopril 40 mg 12/27/18 10:00 Zestril PO DAILY JOSE C Metoclopramide HCl 10 mg 12/27/18 08:14 Reglan PO TID PRN Nausea Miscellaneous Medication 34 unit 12/27/18 10:00 Insulin Detemir [Levemir Flextouch] SQ DAILY REPLACED BY [facility] Miscellaneous Medication 1,000 mg 12/27/18 10:00 Metformin Hcl [Metformin] PO BID REPLACED BY [facility] Nortriptyline HCl mg 12/27/18 22:00 Pamelor PO HS REPLACED BY [facility] Ondansetron HCl 4 mg 12/27/18 05:16 Zofran IV Q4H PRN Nausea And Vomiting Risperidone 1 mg 12/27/18 22:00 Risperdal PO HS REPLACED BY [facility] Sodium Chloride 10 ml 12/27/18 10:00 Sodium Chloride Flush Syringe 10 Ml IV BID JOSE C Sodium Chloride 10 ml 12/27/18 05:16 Sodium Chloride Flush Syringe 10 Ml IV PRN PRN LINE FLUSH Sumatriptan Succinate 25 mg 12/27/18 08:14 Imitrex PO Q2HR PRN Headache Trazodone HCl 50 mg 12/27/18 22:00 Desyrel PO [facility] JOSE C
[2018-12-27] MEDS ORDERED: INSULIN GLARGINE 100 UNITS/ML SUB-Q SCH ×2 (09:00→22:00)
[2018-12-27] MEDS ORDERED: METOCLOPRAMIDE 10 MG/2 ML INJ ONE (09:02)
[2018-12-27] MEDS: metFORMIN 500 MG TAB PO SCH ×2 (09:08→17:31)
[2018-12-27] MEDS ORDERED: metFORMIN 500 MG TAB ONE (09:08)
[2018-12-27] MEDS ORDERED: SODIUM PHOSPHATE 45 MMOL in SODIUM CHLORIDE 0.9% 500 ML 500 ML IV ONE (09:30)
[2018-12-27] MEDS ORDERED: ENOXAPARIN 30 MG/0.3 ML INJ SUB-Q SCH (10:00)
[2018-12-27] MEDS ORDERED: INSULIN DETEMIR 34 UNIT SQ SCH (10:00)
[2018-12-27] MEDS ORDERED: NON-FORMULARY EACH (Metformin Hcl [Metformin] 1,000 MG) PO SCH (10:00)
[2018-12-27] MEDS ORDERED: INSULIN LISPRO 100 UNIT/ML SUB-Q SCH (11:30)
[2018-12-27 12:08] LABS: BUN/Creatinine Ratio 18; Blood Urea Nitrogen 14 mg/dL (7-17); Calcium 8.6 mg/dL (8.4-10.2); Hemolysis Index 11
[2018-12-27] MEDS: GABAPENTIN 300 MG CAP PO SCH ×2 (13:15→22:45)
[2018-12-27] MEDS: ENOXAPARIN 40 MG/0.4 ML INJ SUB-Q SCH (13:17)
[2018-12-27] MEDS: amLODIPine 10 MG TAB PO SCH (13:18)
[2018-12-27] MEDS: LISINOPRIL 40 MG TAB PO SCH (13:18)
[2018-12-27] MEDS: INSULIN LISPRO 100 UNIT/ML SUB-Q SCH ×3 (13:25→22:46)
--- NOTE | 2018-12-27 13:41 | Event Note ---
Date: 12/27/18 Consult requested for DKA and ICU admission however transitioned to medical floor. Please re-consult as needed.
[2018-12-27] MEDS ORDERED: INSULIN NPH/REGULAR 70/30 INJ SUB-Q SCH (17:00)
[2018-12-27 18:09] LABS: Calcium 8.5 mg/dL (8.4-10.2)
[2018-12-27] MEDS ORDERED: traZODone 50 MG TAB PO SCH (22:00)
[2018-12-27] MEDS ORDERED: NORTRIPTYLINE 25 MG CAP PO SCH (22:00)
[2018-12-27] MEDS ORDERED: risperiDONE 1 MG TAB PO SCH (22:00)
[2018-12-28] MEDS: GABAPENTIN 300 MG CAP PO SCH ×2 (06:52→17:38)
[2018-12-28] MEDS: INSULIN LISPRO 100 UNIT/ML SUB-Q SCH ×6 (09:00→17:38)
--- NOTE | 2018-12-28 10:16 | Discharge Summary ---
Providers - Providers Date of Admission: 12/27/18 00:00 Attending physician: DIVYA MONTANA MD 12/27/18 05:16 Consult to Physician [CONS] Routine Comment: called office/soheila Consulting Provider: YARY NORMAN Physician Instructions: Reason For Exam: cc Primary care physician: JUAN CARLOS INMAN MD Hospitalization Condition: Critical Hospital course: 48-year-old woman with history of diabetes who presented with thirst and lethargy. She had lost her medical insurance and no longer had access to insulin Diagnosis DKA Dehydration Nonadherence due to loss of insurance htn Plan Patient was treated with insulin drip, IV fluids Transition to subcutaneous insulins Preventative health counseling performed for 17 minutes Disposition: DC-01 TO HOME OR SELFCARE Time spent for discharge: 33 mins Core Measure Documentation - Palliative Care Palliative Care/ Comfort Measures: Not Applicable - Core Measures Any of the following diagnoses?: none Exam - Constitutional Vitals: Temp Pulse Resp BP Pulse Ox 97.0 F L 99 H 16 119/72 97 12/28/18 05:22 12/28/18 05:22 12/28/18 05:22 12/28/18 05:22 12/28/18 05:22 General appearance: Present: no acute distress, well-nourished - EENT Eyes: Present: PERRL ENT: hearing intact, clear oral mucosa - Neck Neck: Present: supple, normal ROM - Respiratory Respiratory effort: normal Respiratory: bilateral: CTA - Cardiovascular Heart Sounds: Present: S1 & S2. Absent: rub, click - Extremities Extremities: pulses symmetrical, No edema Peripheral Pulses: within normal limits - Abdominal General gastrointestinal: Present: soft, non-tender, non-distended, normal bowel sounds Female genitourinary: Present: normal - Integumentary Integumentary: Present: clear, warm, dry - Musculoskeletal Musculoskeletal: gait normal, strength equal bilaterally - Psychiatric Psychiatric: appropriate mood/affect, intact judgment & insight - Neurologic Neurologic: CNII-XII intact, moves all extremities Plan Follow up with: JUAN CARLOS ALVARADO MD [Primary Care Provider] - 7 Days Prescriptions: traZODone [Desyrel] 50 mg PO QHS #30 traZODone [Desyrel] 50 mg PO QHS #30 tab Lactulose [Cephulac] 20 gm PO Q6HR PRN #90 ml PRN Reason: Constipation Docusate Sodium [Colace CAP] 100 mg PO BID PRN #30 capsule PRN Reason: Constipation Lispro Insulin [HumaLOG] 12 unit SQ AC #1 vial SUMAtriptan SUCCINATE [Imitrex] 25 mg PO Q2HR PRN #20 MDD 200 PRN Reason: Headache Sitagliptin Phosphate [Januvia] 100 mg PO DAILY #30 Insulin Detemir [Levemir Flextouch] 40 unit SQ HS #5 pen Metformin HCl [metFORMIN] 1,000 mg PO BID #60 Metformin HCl [metFORMIN] 1,000 mg PO BID #60 tablet Gabapentin [Neurontin] 3 cap PO Q8HR #270 cap amLODIPine [Norvasc] 10 mg PO DAILY #30 amLODIPine [Norvasc] 10 mg PO DAILY #30 tab Nortriptyline [Pamelor] 3 cap PO HS #90 cap risperiDONE [RisperiDONE] 1 mg PO HS #30 risperiDONE [RisperiDONE] 1 mg PO HS #30 tab SUMAtriptan succinate [SUMAtriptan Succinate] 25 mg PO Q2H PRN #30 tablet PRN Reason: Headache Lisinopril [Zestril TAB] 40 mg PO DAILY #30 Lisinopril [Zestril TAB] 40 mg PO QDAY #30 tablet
[2018-12-28] MEDS: ENOXAPARIN 40 MG/0.4 ML INJ SUB-Q SCH (10:57)
[2018-12-28] MEDS: amLODIPine 10 MG TAB PO SCH (10:58)
[2018-12-28] MEDS: LISINOPRIL 40 MG TAB PO SCH (10:59)
[2018-12-28] MEDS: metFORMIN 500 MG TAB PO SCH ×2 (11:02→17:38)
[2018-12-28 12:52] VITALS: BP 116/79
== END 2018-12-28 18:47 | disposition home or self-care (01) | DRG 638 ==
LOC: ED 16:08 → CC1 12-27 → 3A 12-27 09:33
PROVIDERS: ADMIT Internal Medicine; ATTEND Internal Medicine
DX: E10.10 Type 1 diabetes mellitus with ketoacidosis without coma (principal); I16.1 Hypertensive emergency; E87.1 Hypo-osmolality and hyponatremia; E86.0 Dehydration; I10 Essential (primary) hypertension; M10.9 Gout, unspecified; F32.9 Major depressive disorder, single episode, unspecified; E87.6 Hypokalemia; Z82.49 Family history of ischemic heart disease and other diseases of the circulatory system; Z83.3 Family history of diabetes mellitus; Z79.899 Other long term (current) drug therapy
CPT/HCPCS: 36415; 70450; 71045; 80048; 80053; 80307; 81001; 82140; 82550; 82553; 82805; 82962; 83735; 84100; 84484; 85025; 85610; 87116; 93005; 93010; G0378; J0360; J1650; J1815; J2060; J2405; J2765; J3480; J7030; J7040; J7050